=== PATIENT | male | born 1985 | race Hispanic/Latino ===

== ENCOUNTER 2018-07-24 21:51 | Emergency (ER) | payer OTHER, MEDICAID ==
[2018-07-24 22:17] VITALS: BP 130/84; PULSE 80; RESP 18; TEMP 98.3; O2SAT 98
--- NOTE | 2018-07-25 00:16 | ED PDOC ---
HPI: Headache Time Seen by Provider: 07/24/18 22:58 Chief Complaint (Nursing): Headache Chief Complaint (Provider): Head Injury History Per: Patient History/Exam Limitations: no limitations Onset/Duration Of Symptoms: Hrs (x2) Current Symptoms Are (Timing): Better Pain Scale Rating Of: 3 Additional Complaint(s): 33 year old male with no significant past medical history presents to the ED with a closed head injury that happened earlier tonight, approximately 2 hours ago. Patient reports [place] and due to the fact that he was wearing a hat, he didnt see a pipe overhead. When he turned, he struck the pipe with his forehead. He denies LOC, nausea, vomiting, change in vision, or dizziness. Patient reports neck pain described as stiffness that is 3 out of 10 in severity. He took no pain medications [employer]. PMD: patient does not have one. Past Medical History Reviewed: Historical Data, Nursing Documentation, Vital Signs Vital Signs: Last Vital Signs Temp 98.3 F 07/24/18 22:15 Pulse 80 07/24/18 22:15 Resp 18 07/24/18 22:15 BP 130/84 07/24/18 22:15 Pulse Ox 98 07/24/18 22:15 - Medical History PMH: Anxiety - Surgical History Other surgeries: surgical procedures done to right foot and nose. - Family History Family History: States: Unknown Family Hx - Immunization History Hx Tetanus Toxoid Vaccination: Yes (UTD) - Home Medications Home Medications: Ambulatory Orders Medication Instructions Recorded Hydroxyzine Hydrochloride 50 mg PO DAILY 09/09/15 [Hydroxyzine HCl] Promethazine/Codeine 5 ml PO Q4H PRN #125 ml 09/09/15 [Codeine/Promethazine 10 MG/5 Ml-6.25 MG/5 Ml] Acetaminophen [Acetaminophen 8 650 mg PO Q8 PRN #21 tablet.er 07/25/18 Hour] - Allergies Allergies/Adverse Reactions: Allergies Allergy/AdvReac Type Severity Reaction Status Date / Time No Known Allergies Allergy Verified 07/24/18 22:15 Review of Systems ROS Statement: Except As Marked, All Systems Reviewed And Found Negative ENT: Positive for: Other (neck stiffness) Musculoskeletal: Positive for: Other (head injury) Physical Exam - Reviewed Nursing Documentation Reviewed: Yes Vital Signs Reviewed: Yes - Physical Exam Comments: GENERAL APPEARANCE: Patient is awake, alert, oriented x 3, in no acute distress. Resting comfortably. SKIN: Warm, dry; (-) cyanosis. (+) superficial abrasions to anterior, mid forehead (-) active bleeding (-) edema (-) ecchymosis (-) tenderness HEAD: (-) scalp tenderness, (-) hematoma. EYES: (-) conjunctival pallor, (-) scleral icterus, (-) nystagmus. ENMT: Pharynx clear, uvula midline. Airway patent: (-) stridor. Mucus membranes moist. NECK: Supple, FROM (+)bilateral paracervical tenderness, (-) midline tenderness, (-) lymphadenopathy. CHEST AND RESPIRATORY: (-) rales, (-) rhonchi, (-) wheezes; breath sounds equal bilaterally. Respirations even and nonlabored. HEART AND CARDIOVASCULAR: (-) irregularity ABDOMEN AND GI: Soft; (-) tenderness. EXTREMITIES: (-) deformity, (-) tenderness (-) limitation of motion NEURO AND PSYCH: GCS=15. Mental status as above. Has full memory of episode; neuropathologist: Pupils equal & reactive. EOMI and painless. (-) facial asymmetry. Strength 5/5 in all extremities. No gross sensory deficits. Gait: steady. Speech: clear. - ECG O2 Sat by Pulse Oximetry: 98 (RA) Pulse Ox Interpretation: Normal Medical Decision Making Medical Decision Making: Time: 2339 Initial Plan: --Tylenol 650 mg PO --Re-evaluation 0005 On re-evaluation, patient reports improvement of symptoms and is requesting discharge. On exam, patient remains AAOx3, in no acute distress. Lungs clear to auscultation, cardiac RRR, repeat neuro exam shows no focal findings. VSS, stable for discharge. Lab/Diagnostic results d/w the patient in great detail. Diagnosis of closed head injury, cervical strain d/w the patient. Based on history, exam and diagnostic results, plan will be for outpatient follow up. Patient instructed to follow-up with pmd / referral provided / the clinic in 1- 2 days without fail. Advised to take medication as prescribed. Return to the emergency room at any time for any new or worsening symptoms. Patient states he fully agrees with and understands discharge instructions. States that he agrees with the plan and disposition. Verbalized and repeated discharge instructions and plan. I have given the patient opportunity to ask any additional questions. Scribe Attestation: Documented by Laurie Suarez, acting as a scribe for Melinda Jiang PA-C Provider Scribe Attestation: All medical record entries made by the Scribe were at my direction and ariela talavera dictated by me. I have reviewed the chart and agree that the record accurately reflects my personal performance of the history, physical exam, medical decision making, and the department course for this patient. I have also personally directed, reviewed, and agree with the discharge instructions and disposition. Disposition - Clinical Impression Clinical Impression: Closed head injury, Neck pain - Patient ED Disposition Is Patient to be Admitted: No Counseled Patient/Family Regarding: Studies Performed, Diagnosis, Need For Followup - Disposition Referrals: [facility] [Outside] Disposition: Routine/Home Disposition Time: 00:10 Condition: FAIR Additional Instructions: The emergency medical care you received today was directed towards your acute symptoms. If you were prescribed medication, please fill it at the pharmacy and take it as directed. It may take several days for your symptoms to resolve. Return to emergency department if your symptoms worsen, do not improve, or if you have any other problems. Please contact your doctor / referred provider / clinic in 2 days for further evaluation. The treatment in the emergency department cannot replace ongoing medical care by a primary doctor outside of the emergency department. Prescriptions: Acetaminophen [Acetaminophen 8 Hour] 650 mg PO Q8 PRN #21 tablet.er PRN Reason: Headache Instructions: Neck Pain, Closed Head Injury, Minor Head Injury (DC) Forms: [employer] (Bulgarian) Print Language: HONG KONGER - POA Present On Arrival: Falls Or Trauma
== END 2018-07-25 00:10 | disposition home or self-care (01) ==
LOC: H.ER 21:51
DX: S09.90XA Unspecified injury of head, initial encounter (principal); W19.XXXA Unspecified fall, initial encounter; Y93.01 Activity, walking, marching and hiking; F41.9 Anxiety disorder, unspecified